=== PATIENT | male | born 1985 | race Caucasian/White ===

== ENCOUNTER 2017-10-19 13:37 | Emergency (ER) | payer BC ==
[2017-10-19 15:50] LABS: Urine Blood 2+ (NEG); Urine Glucose NEGATIVE (NEG); Urine Protein NEGATIVE (NEG)
[2017-10-19 16:47] LABS: Absolute Monocytes 0.3 K/uL (0.1-1.3); Absolute Neutrophil 7.9 K/uL (1.8-8.0); Basophils % 0.4 % (0-1.3); Eosinophils % 0.6 % (0-4.4); Hematocrit 46.5 % (39.6-49.0); Lymphocytes % 19.2 % (15.3-44.8); MCH 28.6 pg (27.0-35.0); MCV 85.9 fL (80-100); RBC Red Blood Cell Count 5.41 M/uL (4.33-5.43)
[2017-10-19] MEDS ORDERED: NA CHLORIDE 0.9% 1,000 ML ONE (16:51)
[2017-10-19 17:04] LABS: Albumin 4.6 g/dL (3.2-5.5); Bilirubin Direct 0.1 mg/dL (0-0.2); Bilirubin Total 0.5 mg/dL (0.3-1.2); Protein, Total 7.1 g/dL (6.0-8.3)
--- NOTE | 2017-10-19 17:12 | ER ---
Nurse's Notes [facility] Name: Dayo Peace Age: 32 yrs Sex: Male : 1985 Arrival Date: 10/19/2017 Time: 13:40 Bed 14 Private MD: Diagnosis: Syncope and collapse-near Presentation: 10/19 14:01 Presenting complaint: Patient states: i was at work today, started feeling light hj headiness checked my BP- 150/95, HR- 125; almost passed out; BG- 94; denies fever and chills;. Transition of care: patient was not received from another setting of care. Onset of symptoms was October 19, 2017. Care prior to arrival: None. 14:01 Method Of Arrival: Ambulatory 14:01 Acuity: RAY 3 hj Triage Assessment: 14:05 General: Appears in no apparent distress. uncomfortable, Behavior is calm, cooperative, hj appropriate for age. Pain: Denies pain. Historical: - Allergies: 14:05 No Known Allergies; hj - Home Meds: 14:05 citalopram 30 mg tab 1 tab once daily [Active]; hj - PMHx: 14:05 Anxiety; hj - PSHx: 14:05 back; hj - Immunization history:: Adult Immunizations up to date. - Social history:: Smoking status: Patient/guardian denies using tobacco, Patient/guardian denies using street drugs. - Family history:: not pertinent. Screenin:05 Abuse screen: Denies threats or abuse. Nutritional screening: No deficits noted. tw2 Tuberculosis screening: No symptoms or risk factors identified. Fall Risk None identified. Assessment: 15:03 General: Appears in no apparent distress. well groomed, Behavior is calm, cooperative, tw2 appropriate for age. Pain: Denies pain. Neuro: Level of Consciousness is awake, alert, obeys commands, Oriented to person, place, time, situation, Reports "i just feel run down like". Cardiovascular: Denies chest pain, shortness of breath, Heart tones S1 S2 Capillary refill < 3 seconds Patient's skin is warm and dry. Respiratory: Airway is patent Respiratory effort is even, unlabored, Respiratory pattern is regular, symmetrical, Breath sounds are clear bilaterally. GI: No signs and/or symptoms were reported involving the gastrointestinal system. Abdomen is flat, Bowel sounds present X 4 quads. : No signs and/or symptoms were reported regarding the genitourinary system. EENT: No signs and/or symptoms were reported regarding the EENT system. Derm: No signs and/or symptoms reported regarding the dermatologic system. Skin is intact, Skin is pale, Skin temperature is warm. Musculoskeletal: Range of motion: intact in all extremities. 16:33 Reassessment: Patient appears in no apparent distress at this time. No changes from tw2 previously documented assessment. Patient and/or family updated on plan of care and expected duration. Pain level reassessed. Patient is alert, oriented x 3, equal unlabored respirations, skin warm/dry/pink. 17:26 Reassessment: Patient appears in no apparent distress at this time. No changes from tw2 previously documented assessment. Patient and/or family updated on plan of care and expected duration. Pain level reassessed. Patient is alert, oriented x 3, equal unlabored respirations, skin warm/dry/pink. Vital Signs: 14:05 BP 127 / 76; Pulse 66; Resp 18; Temp 97.5(TE); Pulse Ox 98% on R/A; Weight 97.52 kg; hj Height 6 ft. 0 in. (182.88 cm); Pain 0/10; 15:00 BP 114 / 71 Supine; Pulse 76; tw2 15:00 BP 118 / 85 Sitting; Pulse 59; tw2 15:00 BP 118 / 73 Standing; Pulse 88; tw2 15:41 BP 122 / 79; Pulse 55; Resp 14; Pulse Ox 97% on R/A; mh5 16:33 BP 125 / 80; Pulse 56; Resp 15; Pulse Ox 98% on R/A; tw2 17:26 BP 123 / 82; Pulse 56; Resp 17; Pulse Ox 100% on R/A; tw2 14:05 Body Mass Index 29.16 (97.52 kg, 182.88 cm) hj 15:00 no c/o dizziness/lightheadedness tw2 ED Course: 13:40 Patient arrived in ED. rg4 14:04 Triage completed. hj 14:05 Arm band placed on right wrist. hj 14:51 Olga Mane RN is Primary Nurse. tw2 14:57 Keyur Mallory MD is Attending Physician. michael 15:05 Bed in low position. Call light in reach. Adult w/ patient. bus driver/monitor on. Pulse tw2 ox on. NIBP on. 16:25 EKG done, by office technology professor. reviewed by Keyur Mallory MD. at1 17:11 X-ray completed. Portable x-ray completed in exam room. Patient tolerated procedure kc2 well. 17:12 XRAY Chest (1 view) In Process Unspecified. EDMS 17:26 No provider procedures requiring assistance completed. IV discontinued, intact, tw2 bleeding controlled, No redness/swelling at site. Pressure dressing applied. Administered Medications: 16:34 Drug: NS 0.9% 1000 ml Route: IV; Rate: 1 bolus; Site: right antecubital; tw2 17:25 Follow up: IV Status: Completed infusion tw2 Point of Care Testing: Blood Glucose: 15:00 Blood Glucose: 75 mg/dL; tw2 Ranges: Outcome: 17:11 Discharge ordered by . [facility] 17:27 Patient left the ED. tw2 17:27 Discharged to home ambulatory, with significant other. tw2 17:27 Condition: stable 17:27 Discharge instructions given to patient, significant other, Instructed on discharge instructions, follow up and referral plans. Demonstrated understanding of instructions, follow-up care. Signatures: Dispatcher [employer] EDMS Keyur Mallory MD MD cha gonzales, Amanda, on line csr EKG Tat1 Richie Oliva RN RN Olga Mendez RN RN tw2 Brianna Villalba 2 Davina Felix 4 Hui Garner 5 Corrections: (The following items were deleted from the chart) 14:07 14:05 Pulse 66bpm; Resp 18bpm; Pulse Ox 98% RA; Temp 97.5F Temporal; 97.52 kg; Height 6 hj ft. 0 in.; BMI: 29.1; Pain 0/10; hj
--- NOTE | 2017-10-19 17:12 | EDPHYS ---
Physician Documentation [facility] Name: Dayo Peace Age: 32 yrs Sex: Male : 1985 Arrival Date: 10/19/2017 Time: 13:40 Bed 14 Private MD: ED Physician Keyur Mallory HPI: 10/19 16:17 This 32 yrs old Male presents to ER via Ambulatory with complaints of michael Numbness, FAINTING. 16:17 The patient's problem is reported as syncope, dizziness, near syncope, weakness. Onset: michael The symptoms/episode began/occurred just prior to arrival. Duration: This was a single incident. Context: the episode(s) was witnessed, by co-worker(s). The symptoms are alleviated by nothing. The symptoms are aggravated by nothing. Associated signs and symptoms: Pertinent positives: lightheadedness. Severity of symptoms: At their worst the symptoms were mild moderate in the emergency department the symptoms have improved moderately. The patient has not experienced similar symptoms in the past. Historical: - Allergies: 14:05 No Known Allergies; hj - Home Meds: 14:05 citalopram 30 mg tab 1 tab once daily [Active]; hj - PMHx: 14:05 Anxiety; hj - PSHx: 14:05 back; hj - Immunization history:: Adult Immunizations up to date. - Social history:: Smoking status: Patient/guardian denies using tobacco, Patient/guardian denies using street drugs. - Family history:: not pertinent. ROS: 16:17 Constitutional: Negative for fever, chills, and weight loss, Eyes: Negative for injury, michael pain, redness, and discharge, ENT: Negative for injury, pain, and discharge, Neck: Negative for injury, pain, and swelling, Cardiovascular: Negative for chest pain, palpitations, and edema, Respiratory: Negative for shortness of breath, cough, wheezing, and pleuritic chest pain, Abdomen/GI: Negative for abdominal pain, nausea, vomiting, diarrhea, and constipation, Back: Negative for injury and pain, : Negative for injury, bleeding, discharge, and swelling, MS/Extremity: Negative for injury and deformity, Skin: Negative for injury, rash, and discoloration, Psych: Negative for depression, anxiety, suicide ideation, homicidal ideation, and hallucinations, Allergy/Immunology: Negative for hives, rash, and allergies, Endocrine: Negative for neck swelling, polydipsia, polyuria, polyphagia, and marked weight changes, Hematologic/Lymphatic: Negative for swollen nodes, abnormal bleeding, and unusual bruising. 16:17 Neuro: Positive for near syncope, weakness. Exam: 16:17 Constitutional: This is a well developed, well nourished patient who is awake, alert, michael and in no acute distress. Head/Face: Normocephalic, atraumatic. Eyes: Pupils equal round and reactive to light, extra-ocular motions intact. Lids and lashes normal. Conjunctiva and sclera are non-icteric and not injected. Cornea within normal limits. Periorbital areas with no swelling, redness, or edema. ENT: Nares patent. No nasal discharge, no septal abnormalities noted. Tympanic membranes are normal and external auditory canals are clear. Oropharynx with no redness, swelling, or masses, exudates, or evidence of obstruction, uvula midline. Mucous membranes moist. Neck: Trachea midline, no thyromegaly or masses palpated, and no cervical lymphadenopathy. Supple, full range of motion without nuchal rigidity, or vertebral point tenderness. No Meningismus. Chest/axilla: Normal chest wall appearance and motion. Nontender with no deformity. No lesions are appreciated. Cardiovascular: Regular rate and rhythm with a normal S1 and S2. No gallops, murmurs, or rubs. Normal PMI, no JVD. No pulse deficits. Respiratory: Lungs have equal breath sounds bilaterally, clear to auscultation and percussion. No rales, rhonchi or wheezes noted. No increased work of breathing, no retractions or nasal flaring. Abdomen/GI: Soft, non-tender, with normal bowel sounds. No distension or tympany. No guarding or rebound. No evidence of tenderness throughout. Back: No spinal tenderness. No costovertebral tenderness. Full range of motion. Male : Normal genitalia with no discharge or lesions. Skin: Warm, dry with normal turgor. Normal color with no rashes, no lesions, and no evidence of cellulitis. MS/ Extremity: Pulses equal, no cyanosis. Neurovascular intact. Full, normal range of motion. Neuro: Awake and alert, GCS 15, oriented to person, place, time, and situation. Cranial nerves II-XII grossly intact. Motor strength 5/5 in all extremities. Sensory grossly intact. Cerebellar exam normal. Normal gait. Psych: Awake, alert, with orientation to person, place and time. Behavior, mood, and affect are within normal limits. 16:17 Neuro: Orientation: is normal, appropriate for stated age, no acute changes, Mentation: is normal, appropriate for stated age, no acute changes, Memory: is normal, appropriate for stated age, no acute changes, Cranial nerves: grossly normal, is grossly normal based on the patient's age, no acute changes, visual frederick are intact. extraocular movements are intact, Facial palsy and sensory deficits are absent. no gross hearing deficit,. Nystagmus is absent. 16:20 Musculoskeletal/extremity: DVT Exam: No signs of deep vein thrombosis. no pain, no michael swelling, no tenderness, negative Homans' sign noted on exam, no appreciated bluish discoloration, no erythema, no increased warmth. 16:21 CT study not indicated or reported. Reason for not performing CT: na [facility] Vital Signs: 14:05 BP 127 / 76; Pulse 66; Resp 18; Temp 97.5(TE); Pulse Ox 98% on R/A; Weight 97.52 kg; hj Height 6 ft. 0 in. (182.88 cm); Pain 0/10; 15:00 BP 114 / 71 Supine; Pulse 76; tw2 15:00 BP 118 / 85 Sitting; Pulse 59; tw2 15:00 BP 118 / 73 Standing; Pulse 88; tw2 15:41 BP 122 / 79; Pulse 55; Resp 14; Pulse Ox 97% on R/A; mh5 16:33 BP 125 / 80; Pulse 56; Resp 15; Pulse Ox 98% on R/A; tw2 17:26 BP 123 / 82; Pulse 56; Resp 17; Pulse Ox 100% on R/A; tw2 14:05 Body Mass Index 29.16 (97.52 kg, 182.88 cm) 15:00 no c/o dizziness/lightheadedness tw2 MDM: 14:57 Patient medically screened. [facility] 16:20 Data reviewed: vital signs, nurses notes, lab test result(s), EKG, radiologic studies, [facility] plain films. 10/19 15:43 Order name: Urine Dipstick--Ancillary (enter results); Complete Time: 16:08 10/19 16:17 Order name: Basic Metabolic Panel; Complete Time: 17: [facility] 10/19 16:17 Order name: CBC with Diff; Complete Time: 17:09 [facility] 10/19 16:17 Order name: Ckmb; Complete Time: 17: [facility] 10/19 16:17 Order name: CPK; Complete Time: 17:09 [facility] 10/19 16:17 Order name: LFT's; Complete Time: 17: [facility] 10/19 15:01 Order name: Orthostatic Blood Pressure; Complete Time: 15: [facility] 10/19 15:01 Order name: Blood Glucose Level; Complete Time: 15: [facility] 10/19 16:17 Order name: Magnesium; Complete Time: 17: [facility] 10/19 16:17 Order name: Troponin (emerg Dept Use Only); Complete Time: 17: [facility] 10/19 16:17 Order name: XRAY Chest (1 view) [facility] 10/19 16:17 Order name: EKG; Complete Time: 16:18 [facility] 10/19 17:22 Order name: Glucose, Ancillary Testing [facility] 10/19 16:17 Order name: Cardiac monitoring; Complete Time: 16:30 [facility] 10/19 16:17 Order name: EKG - Nurse/Tech; Complete Time: 16:30 [facility] 10/19 16:17 Order name: IV Saline Lock; Complete Time: 16:30 [facility] 10/19 16:17 Order name: Labs collected and sent; Complete Time: 16:30 [facility] 10/19 16:17 Order name: O2 Per Protocol; Complete Time: 16:30 [facility] 10/19 16:17 Order name: O2 Sat Monitoring; Complete Time: 16:30 [facility] 10/19 16:17 Order name: Urine Dipstick-Ancillary (obtain specimen); Complete Time: 16:30 [facility] Administered Medications: 16:34 Drug: NS 0.9% 1000 ml Route: IV; Rate: 1 bolus; Site: right antecubital; tw2 17:25 Follow up: IV Status: Completed infusion tw2 Point of Care Testing: Blood Glucose: 15:00 Blood Glucose: 75 mg/dL; tw2 Ranges: Critical Glucose Levels:Adult <50 mg/dl or >400 mg/dl <40 mg/dl or >180 mg/dl Disposition: 10/19/17 17:11 Discharged to Home. Impression: Syncope and collapse - near. - Condition is Stable. - Discharge Instructions: Near-Syncope, Weakness, Near-Syncope, Uipp-ck-Mrtr, Weakness, Htay-es-Gour. - Medication Reconciliation Form, Thank You Letter, Antibiotic Education, Prescription Opioid Use, Work release form, Family Work Release form. - Follow up: Private Physician; When: 2 - 3 days; Reason: Recheck today's complaints, Continuance of care, Re-evaluation by your physician. - Problem is new. - Symptoms have improved. Signatures: Dispatcher [employer] EDKeyur Ayala MD MD cha Joaquin, Henry, RN RN hj Olga Mane RN RN tw2
--- NOTE | 2017-10-19 17:23 | RAD REPORT ---
EXAM DESCRIPTION: RAD - Chest Single View - 10/19/2017 5:11 pm CLINICAL HISTORY: Cough, hypertension COMPARISON: None. TECHNIQUE: AP portable chest image was obtained 1707 hours . FINDINGS: Lungs are clear. Heart and vasculature are normal. No measurable pleural effusion and no p neumothorax. No gross bony abnormality seen. No acute aortic findings suspected. IMPRESSION: No acute cardiopulmonary process.
--- NOTE | 2017-10-19 21:47 | EKG ---
Test Date: 2017-09-30 Test Time: 16:21:52 Travel Agency Manager: NOLVIA MEASUREMENT RESULTS: Intervals: Rate: 61 VT: 164 QRSD: 104 QT: 412 QTc: 414 [place]: P: 43 VT: 164 QRS: 28 T: 60 INTERPRETIVE STATEMENTS: Normal sinus rhythm Incomplete right bundle branch block Borderline ECG No previous ECG available for comparison Electronically Signed On 10-19-17 21:46:31 CDT by Ferdinand Abraham
== END 2017-10-19 17:27 | disposition home or self-care (01) ==
LOC: ER 13:37
DX: R55 Syncope and collapse (principal); R53.1 Weakness; F41.9 Anxiety disorder, unspecified
CPT/HCPCS: 36415; 71045; 80048; 80076; 81003; 82550; 82553; 82962; 83735; 84484; 85025; 93005; 96360; 99284; J7030

== ENCOUNTER 2017-11-17 12:34 | Emergency (ER) | payer BC ==
[2017-11-17 13:13] LABS: Absolute Lymphocytes (CBC) 2.1 K/uL (0.7-4.9); Absolute Monocytes 0.4 K/uL (0.1-1.3); Absolute Neutrophil 5.3 K/uL (1.8-8.0); Basophils % 0.6 % (0-1.3); Eosinophils % 2.1 % (0-4.4); Hematocrit 49.1 % (39.6-49.0); MCH 28.6 pg (27.0-35.0); MPV 8.4 fL (7.6-11.3); Monocytes % 5.3 % (3.3-12.3); RBC Red Blood Cell Count 5.71 M/uL (4.33-5.43)
--- NOTE | 2017-11-17 13:19 | RAD REPORT ---
EXAM DESCRIPTION: RAD - Chest Single View - 11/17/2017 1:10 pm CLINICAL HISTORY: Chest pain. COMPARISON: 10/19/2017 FINDINGS: Portable technique limits examination quality. The lungs are grossly clear. The heart is normal in size. No displaced fractures. IMPRESSION: No acute intrathoracic process suspected.
[2017-11-17 13:26] LABS: Potassium 3.7 mEq/L (3.6-5.0)
--- NOTE | 2017-11-17 14:40 | EDPHYS ---
Physician Documentation [facility] Name: Dayo Peace Age: 32 yrs Sex: Male : 1985 Arrival Date: 11/17/2017 Time: 12:35 Bed 6 Private MD: Out, [facility] ED Physician Oswaldo Christianson HPI: 11/17 14:31 This 32 yrs old Male presents to ER via Ambulatory with complaints of Chest gs Pain, Arm Pain, Dizziness. 14:31 The patient or guardian reports chest pain that is located primarily in the anterior gs chest wall, interscapular area on left. The pain does not radiate. Associated signs and symptoms: Pertinent negatives: abdominal pain, diaphoresis. The chest pain is described as dull. Duration: The patient or guardian reports multiple episodes, that wax and wane, with no pattern. Modifying factors: The symptoms are alleviated by nothing. the symptoms are aggravated by movement. The patient has experienced similar episodes in the past, multiple times, started a month ago seen hydroelectric plant operator had stress test, started bp meds. Historical: - Allergies: 12:50 No Known Allergies; aj - Home Meds: 12:39 citalopram 30 mg tab 1 tab once daily [Active]; tw2 - PMHx: 12:39 Anxiety; tw2 - Immunization history:: Adult Immunizations up to date. - Social history:: Smoking status: Patient/guardian denies using tobacco. ROS: 14:31 All other systems are negative. gs Exam: 14:31 Head/Face: Normocephalic, atraumatic. Eyes: Pupils equal round and reactive to light, gs extra-ocular motions intact. Lids and lashes normal. Conjunctiva and sclera are non-icteric and not injected. Cornea within normal limits. Periorbital areas with no swelling, redness, or edema. ENT: Nares patent. No nasal discharge, no septal abnormalities noted. Tympanic membranes are normal and external auditory canals are clear. Oropharynx with no redness, swelling, or masses, exudates, or evidence of obstruction, uvula midline. Mucous membranes moist. Neck: Trachea midline, no thyromegaly or masses palpated, and no cervical lymphadenopathy. Supple, full range of motion without nuchal rigidity, or vertebral point tenderness. No Meningismus. Chest/axilla: Normal chest wall appearance and motion. Nontender with no deformity. No lesions are appreciated. Cardiovascular: Regular rate and rhythm with a normal S1 and S2. No gallops, murmurs, or rubs. Normal PMI, no JVD. No pulse deficits. Respiratory: Lungs have equal breath sounds bilaterally, clear to auscultation and percussion. No rales, rhonchi or wheezes noted. No increased work of breathing, no retractions or nasal flaring. Abdomen/GI: Soft, non-tender, with normal bowel sounds. No distension or tympany. No guarding or rebound. No evidence of tenderness throughout. Back: No spinal tenderness. No costovertebral tenderness. Full range of motion. Skin: Warm, dry with normal turgor. Normal color with no rashes, no lesions, and no evidence of cellulitis. MS/ Extremity: Pulses equal, no cyanosis. Neurovascular intact. Full, normal range of motion. Neuro: Awake and alert, GCS 15, oriented to person, place, time, and situation. Cranial nerves II-XII grossly intact. Motor strength 5/5 in all extremities. Sensory grossly intact. Cerebellar exam normal. Normal gait. 14:31 Constitutional: The patient appears alert, awake. 14:31 ECG was reviewed by the Attending Physician. Vital Signs: 12:37 BP 127 / 82; Pulse 66; Resp 18; Temp 98.4; Pulse Ox 96% on R/A; Weight 94.35 kg (R); tw2 Height 6 ft. 0 in. (182.88 cm); Pain 3/10; 12:37 Body Mass Index 28.21 (94.35 kg, 182.88 cm) tw2 MDM: 12:51 Patient medically screened. gs 14:31 Differential diagnosis: abnormal EKG, coronary artery disease chest wall pain. Data gs reviewed: vital signs, nurses notes. Response to treatment: the patient's symptoms have resolved after treatment, and as a result, I will discharge patient. 11/17 12:52 Order name: Basic Metabolic Panel; Complete Time: 14: 11/17 12:52 Order name: CBC with Diff; Complete Time: 14: 11/17 12:52 Order name: Troponin (emerg Dept Use Only); Complete Time: 14: 11/17 12:52 Order name: XRAY Chest (1 view); Complete Time: 14: 11/17 12:52 Order name: EKG; Complete Time: 12:53 11/17 12:52 Order name: Cardiac monitoring; Complete Time: 13: 11/17 12:52 Order name: EKG - Nurse/Tech; Complete Time: 13:34 11/17 12:52 Order name: IV Saline Lock; Complete Time: 13: 11/17 12:52 Order name: Labs collected and sent; Complete Time: : 11/17 12:52 Order name: O2 Per Protocol; Complete Time: : 11/17 12:52 Order name: O2 Sat Monitoring; Complete Time: 13: 11/17 12:52 Order name: Urine Dipstick-Ancillary (obtain specimen); Complete Time: : EC:31 Rate is 54 beats/min. Rhythm is regular with Right bundle branch block. MT interval is gs normal. QRS interval is prolonged. QT interval is normal. T waves are Normal. No ST changes noted. Clinical impression: Abnormal EKG without significant change. No change from previous ECG. Administered Medications: No medications were administered Disposition: 11/17/17 14:39 Discharged to Home. Impression: Chest pain, unspecified. - Condition is Stable. - Discharge Instructions: Nonspecific Chest Pain, Managing Your High Blood Pressure. - Medication Reconciliation Form, Thank You Letter, Antibiotic Education, Prescription Opioid Use form. - Follow up: Isaac Guadarrama MD; When: 1 - 2 days; Reason: Re-evaluation by your physician. Signatures: Dispatcher [employer] Rocio Ball RN RN aj Gallardo, Ana ag Wise, Tara, RN RN tw2 Oswaldo Christianson MD MD
--- NOTE | 2017-11-17 14:40 | ER ---
Nurse's Notes [facility] Name: Dayo Peace Age: 32 yrs Sex: Male : 1985 Arrival Date: 11/17/2017 Time: 12:35 Bed 6 Private MD: Out, [facility] Diagnosis: Chest pain, unspecified Presentation: 11/17 12:38 Presenting complaint: Patient states: having chest pain and radiates down to the left tw2 arm, belching a lot. Transition of care: patient was not received from another setting of care. Onset of symptoms was November 17, 2017. Initial Sepsis Screen: Does the patient meet any 2 criteria? No. Patient's initial sepsis screen is negative. Does the patient have a suspected source of infection? No. Patient's initial sepsis screen is negative. Care prior to arrival: None. 12:38 Method Of Arrival: Ambulatory tw2 12:38 Acuity: RAY 3 tw2 Historical: - Allergies: 12:50 No Known Allergies; aj - Home Meds: 12:39 citalopram 30 mg tab 1 tab once daily [Active]; tw2 - PMHx: 12:39 Anxiety; tw2 - Immunization history:: Adult Immunizations up to date. - Social history:: Smoking status: Patient/guardian denies using tobacco. Screenin:03 Abuse screen: Denies threats or abuse. Denies injuries from another. Nutritional hb screening: No deficits noted. Tuberculosis screening: No symptoms or risk factors identified. Fall Risk None identified. Assessment: 12:48 General: Appears in no apparent distress. comfortable, Behavior is cooperative, aj appropriate for age, anxious. Pain: Complains of pain in chest and left arm Pain radiates to left arm. Neuro: Level of Consciousness is awake, alert, obeys commands, Oriented to person, place, time, situation, Appropriate for age. Cardiovascular: Reports chest pain, lightheadedness, Capillary refill < 3 seconds in bilateral fingers Patient's skin is warm and dry. Respiratory: Airway is patent Respiratory effort is even, unlabored, Respiratory pattern is regular, symmetrical. GI: Reports gaseousness. Derm: Skin is intact, is healthy with good turgor, Skin is pink, warm \T\ dry. normal. Vital Signs: 12:37 BP 127 / 82; Pulse 66; Resp 18; Temp 98.4; Pulse Ox 96% on R/A; Weight 94.35 kg (R); tw2 Height 6 ft. 0 in. (182.88 cm); Pain 3/10; 12:37 Body Mass Index 28.21 (94.35 kg, 182.88 cm) tw2 ED Course: 12:35 Patient arrived in ED. mr 12:35 Out, [facility] is Private Physician. mr 12:38 Arm band placed on. tw2 12:39 Triage completed. tw2 12:42 Oswaldo Christianson MD is Attending Physician. gs 13:00 Inserted saline lock: 20 gauge in right antecubital area, using aseptic technique. hb Blood collected. Patient maintains SpO2 saturation greater than 95% on room air. 13:03 Patient has correct armband on for positive identification. Placed in gown. Bed in low hb position. configuration manager on. Pulse ox on. NIBP on. 13:06 X-ray completed. Portable x-ray completed in exam room. Patient tolerated procedure jb2 well. 13:08 XRAY Chest (1 view) In Process Unspecified. EDMS 13:31 Rocio Tran, RN is Primary Nurse. 14:02 EKG done, by gastrointestinal technician. reviewed by Oswaldo Christianson MD. 14:37 Isaac Guadarrama MD is Referral Physician. Administered Medications: No medications were administered Outcome: 14:39 Discharge ordered by . 15:06 Patient left the ED. ag Signatures: Dispatcher [employer] EDMS Rocio Tran RN RN aj Rivera, Maria Jodi Webbere jb2 Taylor Erickson, ceramic engineer EKG [facility] Tatiana Ramirez Sherie Campbell RN RN hb Wise, Tara, RN RN tw2 Oswaldo Christianson MD MD
--- NOTE | 2017-11-18 06:59 | EKG ---
Test Date: 2017-11-17 Test Time: 13:48:35 Answerer: SHAUN MEASUREMENT RESULTS: Intervals: Rate: 54 NE: 162 QRSD: 106 QT: 430 QTc: 407 [place]: P: 40 NE: 162 QRS: 93 T: 31 INTERPRETIVE STATEMENTS: Sinus bradycardia Rightward axis Incomplete right bundle branch block Borderline ECG Compared to ECG 10/19/2017 16:21:52 Right-axis deviation now present Sinus rhythm no longer present Electronically Signed On 11-18-17 06:59:11 CDT by Ferdinand Abraham
== END 2017-11-17 15:06 | disposition home or self-care (01) ==
LOC: ER 12:34
DX: R07.9 Chest pain, unspecified (principal); F41.9 Anxiety disorder, unspecified
CPT/HCPCS: 36415; 71045; 80048; 84484; 85025; 93005; 99285

== ENCOUNTER 2023-02-27 09:17 | Emergency (ER) | payer OTHER ==
--- OUTSIDE RECORDS SUMMARY | 2023-02-27 09:20 | XMS REPORT | Continuity of Care Document ---
:1985 Author Organization [facility] t Address [address] [place] [address] [address] [place] [address] Care Team Providers Name Role Phone KAITLIN JOSEPH Primary Care Physician Unavailable RABIA Attending Clinician Unavailable DR KAITLIN JOSEPH Attending Clinician Unavailable [phone] Attending Clinician Unavailable LOLLY SEPULVEDA Attending Clinician Unavailable LOLLY SEPULVEDA Attending Clinician Unavailable 1, [facility] Bed Attending Clinician Unavailable Lolly Sepulveda MD Attending Clinician Doctor Unassigned, Mckenzie Attending Clinician Unavailable Only, Adc Test Attending Clinician Unavailable Danna Becker MD Attending Clinician DANNA BECKER Attending Clinician Unavailable RABIA Admitting Clinician Unavailable DR KAITLIN JOSEPH Admitting Clinician Unavailable Payers Payer Name Policy Type Policy Number Effective Date Expiration Date Price guillen TNA [facility] [id number] [facility] [id number] 2020 ADMINISTRATION 00:00:00 Problems Condition Condition Condition Status Onset Resolution Last Treating Co mments Source Name Details Category Date Date Treatment Clinician Date Orchalgia Orchalgia Diagnosis Active [facility] History of History of Diagnosis Active Common kidney kidney Spirit stones stones - [facility] Allergies, Adverse Reactions, Alerts Allergy Allergy Status Severity Reaction(s) Onset Inactive Treating Comm ents Source Name Type Date Date Clinician No Known MA Active UNKNOWN [facility] [place] [facility] NO KNOWN Drug Active Univers ALLERGIE Class ity of S [facility] Family History Family Member Diagnosis Comments Start Date Stop Date Source Natural father Yarsani [facility] Natural mother Yarsani [facility] Social History Social Habit Start Date Stop Date Quantity Comments Source Exposure to Not sure [facility] SARS-CoV-2 (event) [facility] Gender identity [facility] Sexual [facility] History of tobacco Snuff User [facility] Alcohol intake 2017-09-15 2017-09-15 Current Yarsani 00:00:00 00:00:00 non-drinker of Hospital alcohol (finding) History of Social 2017-09-15 2017-09-[address] function 00:00:00 00:00:00 Hospital Tobacco use and 2017-09-15 2017-09-15 User of Yarsani exposure 00:00:00 00:00:00 smokeless Hospital tobacco Sex Assigned At [birth year] Yarsani 00:00:00 00:00:00 Hospital Smoking Status Start Date Stop Date Source Unknown if ever smoked [facility] Never smoked tobacco [facility] ospital Medications Ordered Filled Start Stop Current Ordering Indication Dosage Frequency Signature Comments Components Source Medication Medication Date Date Medication? Clinician (SIG) Name Name Omeprazole Omeprazole Yes Lisa 1 capsule Common [place] 30 minutes Spiri t before - [facility] Citalopram Citalopram Yes Lisa 1 tablet Common Hydrobromid Hydrobromid Jodie Spirit e e - [facility] Procedures Procedure Date / Time Performed Performing Clinician [facility] e SLEEP STUDY DATA 2020-08-14 06:01:00 Doctor Unassigned, No Unive [facility] REPORT Name [facility] [place] Plan of Care Planned Activity Planned Date Details Comments Source Future Scheduled 2023-02-27 COVID-19 VACCINE [facility] Test 09:19:43 (#1) [code = COVID-19 VACCINE (#1)] Future Scheduled 2023-02-27 INFLUENZA VACCINE [facility] Test 09:19:43 [code = INFLUENZA VACCINE] Future Scheduled 2021-05-29 COVID-19 VACCINE [facility] 23:01:51 (1) [code = COVID-19 VACCINE (1)] Future Scheduled 2021-05-29 INFLUENZA VACCINE [facility] Test 23:01:51 [code = INFLUENZA VACCINE] Future Scheduled COVID-19 VACCINE [facility] Test (1) [code = COVID-19 VACCINE (1)] Future Scheduled INFLUENZA VACCINE [facility] Test [code = INFLUENZA VACCINE] Future Scheduled COVID-19 VACCINE Method[facility] Test (1) [code = COVID-19 VACCINE (1)] Future Scheduled INFLUENZA VACCINE [facility] Test [code = INFLUENZA VACCINE] Encounters Start End Encounter Admission Attending Care Care Encounter Source Date/Time Date/Time Type Type Clinicians Facility Department ID 2021-09-[address] [facility] [place] [id number] 13:39:41 [id number] [place] [facility] 2021-08-21 [facility]patient [facility] [id number] Common 11:31:26 [id number] [facility] 2021-12-26 2021-12-26 Outpatient SISSON_C [facility] [id number] [place] 12:01:00 12:01:00 [id number] [facility] 2021-09-28 2021-09-28 Outpatient KAITLIN PENA [facility] [id number] 13:43:00 14:00:00 [id number] [facility] 2020-08-14 2020-08-14 Outpatient R LOLLY SEPULVEDA [facility] [id number] Univers 19:30:00 19:30:00 LOLLY SEPULVEDA [facility] 2020-08-14 2020-08-14 Picture Framer 1, Tel[facility] Sleep Lab Bed [facility] [id number]. [id number] [facility] 13:24:27 15:54:27 Visit Lolly Sepulveda [place] [id number] itmarilee [facility] [id number] [facility] [id number] [address] 2020-08-14 2020-08-14 Orders Doctor TIM [id number] Univers 00:00:00 00:00:00 Only Unassigned, MELVIN [id number] ity of [place] [facility] [id number] Anmol [id number] [facility] [address] 2020-08-10 2020-08-10 Laboratory Only, Adc Test [facility] [id number] Univers 14:14:54 14:29:54 Only Danna Becker [id number] ity of [place] [id number] [facility] [id number] [facility] [address] 2020-08-10 2020-08-10 Outpatient Li BECKER [facility] [id number] Univers 13:30:00 13:30:00 DANNA doherty [facility] 2020-02-08 2020-02-08 Outpatient Zoe Churchill [id number] Common 09:00:00 09:00:00 t Specialty/U Sp jim Specialty rology - [facility] Results This patient has no known results.
[2023-02-27 09:55] LABS: Absolute Lymphocytes (CBC) 2.8 K/uL (0.7-4.9); Hematocrit 47.5 % (39.6-49.0); Lymphocytes % 32.9 % (15.3-44.8); MCV 86.5 fL (80-100); MPV 8.2 fL (7.6-11.3)
[2023-02-27 10:16] LABS: Magnesium 2.1 mg/dL (1.6-2.4); Potassium 3.6 mEq/L (3.5-5.1); Troponin High Sensitivity 18.5 pg/mL (<58.9)
--- NOTE | 2023-02-27 10:16 | RAD REPORT ---
EXAM DESCRIPTION: RAD - Chest Single View - 02/27/2023 10:09 am CLINICAL HISTORY: CHEST PAIN Chest pain. COMPARISON: Chest Single View dated 11/17/2017; Chest Single View dated 10/19/2017 FINDINGS: Portable technique limits examination quality. The lungs are grossly clear. The heart is normal in size. No displaced fractures. IMPRESSION: No acute intrathoracic process suspected.
--- NOTE | 2023-02-27 11:11 | EDPHYS ---
Physician Documentation [facility] Name: Dayo Peace Age: 37 yrs Sex: Male : 1985 Arrival Date: 02/27/2023 Time: 09:17 Bed 15 Private MD: ED Physician Munir Daly HPI: 02/27 17:42 This 37 yrs old Male presents to ER via Ambulatory with complaints of High Blood kb Pressure. 17:42 The patient has elevated blood pressure and discovered this at home, with a home kb device. Onset: The symptoms/episode began/occurred 1 week(s) ago. Associated signs and symptoms: Pertinent positives: headache. Severity of symptoms: At its worst the blood pressure was 150 mm Hg, in the emergency department the blood pressure is unchanged. The patient has not experienced similar symptoms in the past. The patient has not recently seen a physician. [facility] last Thursday and start losartan 25mg instead because he had been on metoprolol for too long. States his blood pressure has been high since the change and he has had headaches and felt weird since. . Historical: - Allergies: 09:30 No Known Allergies; kc6 - PMHx: 09:30 Anxiety; Hypertensive disorder; kc6 - PSHx: 09:30 None; kc6 - Immunization history:: Client reports having NOT received the Covid vaccine. Flu vaccine is not up to date. - Social history:: Smoking status: Patient denies any tobacco usage or history of. ROS: 17:44 Constitutional: Negative for fever, chills, and weight loss. kb 17:44 Neuro: Positive for headache. 17:44 Psych: Positive for anxiety. 17:44 All other systems are negative. Exam: 10:15 Constitutional: This is a well developed, well nourished patient who is awake, alert, kb and in no acute distress. Head/Face: Normocephalic, atraumatic. Eyes: Pupils equal round and reactive to light, extra-ocular motions intact. Lids and lashes normal. Conjunctiva and sclera are non-icteric and not injected. Cornea within normal limits. Periorbital areas with no swelling, redness, or edema. ENT: Moist Mucous membranes Cardiovascular: Regular rate and rhythm with a normal S1 and S2. No gallops, murmurs, or rubs. No pulse deficits. Respiratory: Respirations even and unlabored. No increased work of breathing. Talking in full sentences Abdomen/GI: Soft, non-tender. No distention Skin: Warm, dry with normal turgor. Normal color. MS/ Extremity: Pulses equal, no cyanosis. Neurovascular intact. Full, normal range of motion. Neuro: Awake and alert, GCS 15, oriented to person, place, time, and situation. Moves all extremities. Normal gait. 10:15 ECG was reviewed by the Attending Physician. Vital Signs: 09:29 BP 154 / 99; Pulse 73; Resp 19 S; Temp 97.4(O); Pulse Ox 99% on R/A; Weight 99.79 kg kc6 (R); Height 6 ft. 0 in. (R); Pain 5/10; 10:26 BP 116 / 78; Pulse 56; Resp 18 S; Pulse Ox 94% on R/A; kc6 11:06 BP 97 / 59; Pulse 53; Resp 18 S; Pulse Ox 99% on R/A; kc6 09:29 Body Mass Index 29.84 (99.79 kg, 182.88 cm) kc6 09:29 Pain Scale: Adult kc6 MDM: 09:21 Patient medically screened. kb 17:45 Differential diagnosis: hypertensive crisis, hypertension, adverse medication reaction. kb Data reviewed: vital signs, nurses notes. Counseling: I had a detailed discussion with the patient and/or guardian regarding: the historical points, exam findings, and any diagnostic results supporting the discharge/admit diagnosis, lab results, radiology results, the need for outpatient follow up, a family practitioner, to return to the emergency department if symptoms worsen or persist or if there are any questions or concerns that arise at home. ED course: Feeling better prior to discharge, symptoms resolved. 02/27 09:35 Order name: Basic Metabolic Panel; Complete Time: 10:19 kb 02/27 09:35 Order name: CBC with Diff; Complete Time: 10:02 kb 02/27 09:35 Order name: Magnesium; Complete Time: 10:19 kb 02/27 09:35 Order name: NT PRO-BNP; Complete Time: 10:19 kb 02/27 09:35 Order name: Troponin HS; Complete Time: 10:19 kb 02/27 09:35 Order name: XRAY Chest (1 view); Complete Time: 10:26 kb 02/27 09:35 Order name: EKG; Complete Time: 09:36 kb 02/27 09:35 Order name: Cardiac monitoring; Complete Time: 09:39 kb 02/27 09:35 Order name: EKG - Nurse/Tech; Complete Time: 09:39 kb 02/27 09:35 Order name: IV Saline Lock; Complete Time: 09:46 kb 02/27 09:35 Order name: Labs collected and sent; Complete Time: :46 kb 02/27 09:35 Order name: O2 Per Protocol; Complete Time: :39 kb 02/27 09:35 Order name: O2 Sat Monitoring; Complete Time: :39 kb EC:15 Rate is 62 beats/min. Rhythm is regular. QRS Carbon is Normal. CA interval is normal at kb 178 msec. QRS interval is normal at 108 msec. QT interval is normal at 406 msec. Administered Medications: No medications were administered Disposition: 18:26 Co-signature as Attending Physician, Munir Daly MD I reviewed the patient's care rt provided by the Advanced Practice Provider and agree with the diagnosis and treatment plan. Disposition Summary: 02/27/23 11:10 Discharge Ordered Location: Home kb Condition: Stable kb Diagnosis - Essential (primary) hypertension kb Followup: kb - With: Emergency Department - When: As needed - Reason: Worsening of condition Followup: kb - With: Private Physician - When: 2 - 3 days - Reason: Recheck today's complaints, Continuance of care, Re-evaluation by your physician Discharge Instructions: - Discharge Summary Sheet kb - Hypertension, Adult, [id number] kb - How to Take Your Blood Pressure, [id number] kb - Managing Your Hypertension kb Forms: - Medication Reconciliation Form kb - Thank You Letter kb - Antibiotic Education kb - Prescription Opioid Use kb - Patient Portal Instructions kb - Work release form kc6 Signatures: Dispatcher [employer] Juana Black FNP-C FNP-Shari Brizuela RN RN kc6 Munir Daly MD MD rt
--- NOTE | 2023-02-27 11:11 | ER ---
Nurse's Notes [facility] Name: Dayo Peace Age: 37 yrs Sex: Male : 1985 Arrival Date: 02/27/2023 Time: 09:17 Bed 15 Private MD: Diagnosis: Essential (primary) hypertension Presentation: 02/27 09:29 Chief complaint: Patient states: recent change in BP meds from 50mg of Metoprolo to kc6 25mg of Losartan. pt has been having dizziness, lightheaded, burping, and head presure. reports htn at home. Coronavirus screen: At this time, the client does not indicate any symptoms associated with coronavirus-19. Ebola Screen: No symptoms or risks identified at this time. Initial Sepsis Screen: Does the patient meet any 2 criteria? No. Patient's initial sepsis screen is negative. Does the patient have a suspected source of infection? No. Patient's initial sepsis screen is negative. Risk Assessment: Do you want to hurt yourself or someone else? Patient reports no desire to harm self or others. Onset of symptoms was February 27, 2023. 09:29 Method Of Arrival: Ambulatory [facility] 09:29 Acuity: RAY 3 kc6 Triage Assessment: 09:30 General: Appears in no apparent distress. uncomfortable, Behavior is cooperative, kc6 appropriate for age, anxious. Pain: Complains of pain in chest, headache Pain does not radiate. Pain currently is 5 out of 10 on a pain scale. Quality of pain is described as dull, heavy, pressure, Pain began 2-3 days ago. Is continuous. EENT: No signs and/or symptoms were reported regarding the EENT system. Neuro: Thomson Agitation-Sedation Scale (RASS): 0 - Alert and Calm Level of Consciousness is awake, alert, obeys commands, Oriented to person, place, time, situation, Appropriate for age Reports dizziness. Cardiovascular: Capillary refill < 3 seconds. Respiratory: Airway is patent Trachea midline Respiratory effort is even, unlabored, Respiratory pattern is regular, symmetrical, Denies shortness of breath. GI: No signs and/or symptoms were reported involving the gastrointestinal system. : No signs and/or symptoms were reported regarding the genitourinary system. Derm: No signs and/or symptoms reported regarding the dermatologic system. Skin is intact, is healthy with good turgor, Skin is pink, warm \T\ dry. Musculoskeletal: No signs and/or symptoms reported regarding the musculoskeletal system. Circulation, motion, and sensation intact. Capillary refill < 3 seconds, Range of motion: intact in all extremities. Historical: - Allergies: 09:30 No Known Allergies; kc6 - PMHx: 09:30 Anxiety; Hypertensive disorder; kc6 - PSHx: 09:30 None; kc6 - Immunization history:: Client reports having NOT received the Covid vaccine. Flu vaccine is not up to date. - Social history:: Smoking status: Patient denies any tobacco usage or history of. Screenin:32 [facility] ED Fall Risk Assessment (Adult) History of falling in the last 3 months, kc6 including since admission No falls in past 3 months (0 pts) Confusion or Disorientation No (0 pts) Intoxicated or Sedated No (0 pts) Impaired Gait No (0 pts) Mobility Assist Device Used No (0 pt) Altered Elimination No (0 pt) Score/Fall Risk Level 0 - 2 = Low Risk. Abuse screen: Denies threats or abuse. Denies injuries from another. Nutritional screening: No deficits noted. Tuberculosis screening: No symptoms or risk factors identified. Assessment: 09:33 Reassessment: please see triage assessment. 6 10:25 Reassessment: Patient appears in no apparent distress at this time. No changes from [facility] previously documented assessment. Patient and/or family updated on plan of care and expected duration. Pain level reassessed. Patient is alert, oriented x 3, equal unlabored respirations, skin warm/dry/pink. 11:06 Reassessment: Patient appears in no apparent distress at this time. No changes from [facility] previously documented assessment. Patient and/or family updated on plan of care and expected duration. Pain level reassessed. Patient is alert, oriented x 3, equal unlabored respirations, skin warm/dry/pink. Vital Signs: 09:29 BP 154 / 99; Pulse 73; Resp 19 S; Temp 97.4(O); Pulse Ox 99% on R/A; Weight 99.79 kg kc6 (R); Height 6 ft. 0 in. (R); Pain 5/10; 10:26 BP 116 / 78; Pulse 56; Resp 18 S; Pulse Ox 94% on R/A; kc6 11:06 BP 97 / 59; Pulse 53; Resp 18 S; Pulse Ox 99% on R/A; kc6 09:29 Body Mass Index 29.84 (99.79 kg, 182.88 cm) kc6 09:29 Pain Scale: Adult kc6 ED Course: 09:18 Patient arrived in ED. im 09:19 Juana Nelson [facility]-C [facility] kb 09:19 Munir Daly MD is Attending Physician. kb 09:23 Shari Mcguire, RN is Primary Nurse. kc6 09:30 Triage completed. kc6 09:33 Patient has correct armband on for positive identification. Placed in gown. Bed in low kc6 position. Call light in reach. Side rails up X 1. Adult w/ patient. Client placed on continuous cardiac and pulse oximetry monitoring. NIBP monitoring applied. monitoring and evaluation advisor on. 09:33 Arm band placed on. kc6 10:10 XRAY Chest (1 view) In Process Unspecified. EDMS 11:24 No provider procedures requiring assistance completed. IV discontinued, intact, kc6 bleeding controlled, No redness/swelling at site. Pressure dressing applied. Administered Medications: No medications were administered Medication: 11:24 VIS not applicable for this client. kc6 Outcome: 11:10 Discharge ordered by . kb 11:24 Discharged to home ambulatory, with significant other. kc6 11:24 Condition: improved 11:24 Discharge instructions given to patient, Instructed on discharge instructions, follow up and referral plans. Demonstrated understanding of instructions, follow-up care. 11:24 Patient left the ED. kc6 Signatures: Dispatcher [employer] EDMS Juana Nelson FNP-C FNP-Shari Brizuela, RN RN kc6 Kandace Joseph im
[2023-02-27 11:30] VITALS: TEMP 97.4
[2023-02-27 11:33] VITALS: BP 97/59; O2SAT 99
--- NOTE | 2023-03-02 13:13 | EKG ---
Test Date: 2023-02-27 Test Time: 09:37:46 Poultry Processor: MANJULA MEASUREMENT RESULTS: Intervals: Rate: 62 MS: 178 QRSD: 108 QT: 400 QTc: 406 [place]: P: 31 MS: 178 QRS: 73 T: 28 INTERPRETIVE STATEMENTS: Normal sinus rhythm Incomplete right bundle branch block Borderline ECG Compared to ECG 11/17/2017 13:48:35 Sinus bradycardia no longer present Right-axis deviation no longer present Electronically Signed On 03-02-23 13:09:05 CDT by Silvestre Fuchs
== END 2023-02-27 11:24 | disposition home or self-care (01) ==
LOC: ER 09:17
DX: I10 Essential (primary) hypertension (principal)
CPT/HCPCS: 36415; 71045; 80048; 83735; 83880; 84484; 85025; 93005; 99284

== ENCOUNTER 2024-12-06 10:07 | Emergency (ER) | payer OTHER ==
--- NOTE | 2024-12-06 10:55 | RAD REPORT ---
Procedure: Chest Single View HISTORY: Syncope and numbness COMPARISON: 2022 FINDINGS: The lungs appear clear of acute infiltrate. No significant pleural effusion noted. The heart is normal size. IMPRESSION: No acute abnormality is displayed.
[2024-12-06 10:58] LABS: Absolute Eosinophils 0.1 K/uL (0-0.5); Absolute Lymphocytes (CBC) 1.3 K/uL (0.7-4.9); Absolute Monocytes 0.3 K/uL (0.1-1.3); Absolute Neutrophil 2.6 K/uL (1.8-8.0); Basophils % 0.6 % (0-1.3); Eosinophils % 2.7 % (0-4.4); Hematocrit 49.6 % (39.6-49.0); Hemoglobin 16.9 g/dL (13.6-17.9); Lymphocytes % 29.5 % (15.3-44.8); MCH 29.5 pg (27.0-35.0); MCV 86.7 fL (80-100); MPV 8.2 fL (7.6-11.3); Monocytes % 7.4 % (3.3-12.3); Neutrophils % 59.8 % (41.7-73.7); Platelets 181 thou/uL (152-406); RBC Red Blood Cell Count 5.72 M/uL (4.33-5.43); Red Cell Distribution Width 13.7 % (12.1-15.2)
[2024-12-06 11:02] LABS: PT Prothrombin Time 11.8 SECONDS (10-13.0); Protime INR 1.04
--- NOTE | 2024-12-06 11:07 | RAD REPORT ---
EXAM: CT brain without contrast HISTORY: Syncope COMPARISON: None TECHNIQUE: Multiple contiguous axial images were obtained and a CT of the brain without contrast.. Sagittal and coronal reconstruction performed. Automated exposure control, adjustment of the mA and/or kV according to patient size, and/or iterative reconstruction. Unless otherwise specified, incidental f indings do not require dedicated imaging follow-up FINDINGS: An intracranial bleed is not seen Ventricles are normal caliber No extra-axial fluid collection noted No significant hypodensity within the brain No fluid within the visualized sinuses or mastoids noted. IMPRESSION: No acute intracranial abnormality noted. If the patient continues to have symptoms to suggest an acute intracranial abnormality then MRI of th e brain would be recommended.
[2024-12-06 11:24] LABS: Albumin 3.6 g/dL (3.4-5.0); Albumin/Globulin Ratio 1.2 (1.1-1.8); Anion Gap 8.8 mEq/L (5.0-15.0); Bilirubin Direct 0.3 mg/dL (0-0.2); Bilirubin Indirect, Calculated 0.7 mg/dL (0.2-0.8); Globulin 2.9 g/dL (2.3-3.5); Magnesium 1.9 mg/dL (1.6-2.4); Potassium 3.8 mEq/L (3.5-5.1); Protein, Total 6.5 g/dL (6.4-8.2); Troponin High Sensitivity 14.4 pg/mL (<58.9)
--- NOTE | 2024-12-06 11:40 | ER ---
Nurse's Notes [facility] Name: Dayo Peace Age: 39 yrs Sex: Male : 1985 Arrival Date: 12/06/2024 Time: 10:07 Bed 6 Private MD: Diagnosis: Anxiety attack Presentation: 12/06 10:21 Chief complaint: EMS states: "toned out for being at work and bilateral arms/legs mb9 started tingling. Pt denies CP/SOB/headache. 18g left AC, gave 1 Nitroglycerin, 2 Aspirin, and 1 liter of LR.". Coronavirus screen: Vaccine status: Patient reports being unvaccinated. Ebola Screen: No symptoms or risks identified at this time. Initial Sepsis Screen: Does the patient meet any 2 criteria? No. Patient's initial sepsis screen is negative. Does the patient have a suspected source of infection? No. Patient's initial sepsis screen is negative. Risk Assessment: Do you want to hurt yourself or someone else? Patient reports no desire to harm self or others. Onset of symptoms was December 06, 2024. 10:21 Acuity: RAY 3 mb9 10:21 Method Of Arrival: EMS: [facility] mb9 Triage Assessment: 10:24 General: Appears uncomfortable, Behavior is calm, cooperative. Pain: Denies pain. EENT: mb9 No signs and/or symptoms were reported regarding the EENT system. Neuro: Thomson Agitation-Sedation Scale (RASS): 0 - Alert and Calm Level of Consciousness is awake, alert, obeys commands, Oriented to person, place, time, situation, Appropriate for age. Cardiovascular: Heart tones S1 S2 present Patient's skin is warm and dry. Respiratory: Airway is patent Respiratory effort is even, unlabored, Respiratory pattern is regular, symmetrical, Breath sounds are clear bilaterally. GI: Abdomen is round non-distended, Bowel sounds present X 4 quads. Abd is soft and non tender X 4 quads. : No signs and/or symptoms were reported regarding the genitourinary system. Derm: Skin is pink, warm \\T\\ dry. Musculoskeletal: Range of motion: intact in all extremities. Historical: - Allergies: 10:23 No Known Allergies; mb9 - Home Meds: 10:23 losartan oral [Active]; Metoprolol Tartrate Oral [Active]; Metoprolol Tartrate Oral mb9 [Active]; - PMHx: 10:23 Anxiety; Hypertensive disorder; mb9 - PSHx: 10:23 None; mb9 - Immunization history:: Adult Immunizations up to date. - Infectious Disease History:: Denies. - Social history:: Smoking status: Patient denies any tobacco usage or history of. Screenin:26 [facility] ED Fall Risk Assessment (Adult) History of falling in the last 3 months, mb9 including since admission No falls in past 3 months (0 pts) Confusion or Disorientation No (0 pts) Intoxicated or Sedated No (0 pts) Impaired Gait No (0 pts) Mobility Assist Device Used No (0 pt) Altered Elimination No (0 pt) Score/Fall Risk Level 0 - 2 = Low Risk Oriented to surroundings, Maintained a safe environment, Educated pt \\T\\ family on fall prevention, incl call for assistance when getting out of bed. Abuse screen: Denies threats or abuse. Nutritional screening: No deficits noted. Tuberculosis screening: No symptoms or risk factors identified. Assessment: 10:26 Reassessment: see triage assessment. mb9 10:39 Reassessment: Pt to xray. ld1 11:28 Reassessment: No changes from previously documented assessment. Patient and/or family mb9 updated on plan of care and expected duration. Pain level reassessed. Patient is alert, oriented x 3, equal unlabored respirations, skin warm/dry/pink. 11:47 Reassessment: Patient appears in no apparent distress at this time. No changes from mb9 previously documented assessment. Patient and/or family updated on plan of care and expected duration. Pain level reassessed. Patient is alert, oriented x 3, equal unlabored respirations, skin warm/dry/pink. Vital Signs: 10:21 BP 148 / 81; Pulse 67; Resp 18; Temp 98; Pulse Ox 100% ; Weight 104.33 kg; Height 6 ft. mb9 0 in. ; Pain 0/10; 10:37 BP 136 / 87 Supine; Pulse 61; Resp 17; Pulse Ox 98% on R/A; bc6 10:37 BP 136 / 93 Sitting; Pulse 70; Resp 17; Pulse Ox 97% on R/A; bc6 10:37 BP 158 / 97 Standing; Pulse 67; Resp 18; Pulse Ox 97% on R/A; bc6 11:47 BP 142 / 86; Pulse 77; Resp 18; Pulse Ox 100% on R/A; mb9 10:21 Body Mass Index 31.19 (104.33 kg, 182.88 cm) mb9 10:21 Pain Scale: Adult mb9 ED Course: 10:19 Patient arrived in ED. sp3 10:19 Abhi Garcia MD is Attending Physician. sp3 10:20 Shannon Shepherd, RN is Primary Nurse. mb9 10:21 Arm band placed on. mb9 10:23 Triage completed. mb9 10:26 Bed in low position. Call light in reach. Side rails up X 1. Provided Education on: mb9 press call light if needing anything. Client placed on continuous cardiac and pulse oximetry monitoring. NIBP monitoring applied. laboratory apparatus glass blower on. Door closed. Noise minimized. Warm blanket given. Pillow given. 10:26 Maintain EMS IV. Dressing intact. Good blood return noted. Site clean \\T\\ dry. Gauge \\T\\ mb 9 site: 18 g left AC. Flushed with 10 mL NS. 10:42 CT Head Brain wo Cont In Process Unspecified. EDMS 10:50 XRAY Chest (1 view) In Process Unspecified. EDMS 10:56 No provider procedures requiring assistance completed. mb9 11:47 IV discontinued, intact, bleeding controlled, No redness/swelling at site. Pressure mb9 dressing applied. Administered Medications: No medications were administered Medication: 10:26 VIS not applicable for this client. mb9 Outcome: 11:39 Discharge ordered by . sp3 11:48 Discharged to home ambulatory, with family, mb9 11:48 Condition: stable 11:48 Discharge instructions given to patient, family, Instructed on discharge instructions, follow up and referral plans. Demonstrated understanding of instructions, follow-up care, 11:48 Patient left the ED. mb9 Signatures: Dispatcher [employer] EDMS Amber Schmitt RN RN ld1 Abhi Garcia MD MD sp3 Shannon Shepherd, RN RN mb9 [facility]
--- NOTE | 2024-12-06 11:41 | EDPHYS ---
Physician Documentation [facility] Name: Dayo Peace Age: 39 yrs Sex: Male : 1985 Arrival Date: 12/06/2024 Time: 10:07 Bed 6 Private MD: ED Physician Abhi Garcia HPI: 12/06 10:22 This 39 yrs old Male presents to ER via Unassigned with complaints of bilateral arm/leg sp3 tingling. 10:22 39-year-old male with history of hypertension, anxiety, currently microdosing Cialis at sp3 2.5 mg, presents to the ED with chief complaint of tingling to all extremities, general malaise and near syncope. EMS found patient in an incomplete right bundle and gave nitroglycerin due to hypotension and concerns for possible ACS. Patient now has a mild headache. Patient denies any chest pain, back pain, shortness of breath, abdominal pain, vomiting, diarrhea, full syncope, exogenous substance use, trauma, known sick contacts, travel history, prolonged immobilization, fever or other signs or symptoms on ROS at this time.. Historical: - Allergies: 10:23 No Known Allergies; mb9 - Home Meds: 10:23 losartan oral [Active]; Metoprolol Tartrate Oral [Active]; Metoprolol Tartrate Oral mb9 [Active]; - PMHx: 10:23 Anxiety; Hypertensive disorder; mb9 - PSHx: 10:23 None; mb9 - Immunization history:: Adult Immunizations up to date. - Infectious Disease History:: Denies. - Social history:: Smoking status: Patient denies any tobacco usage or history of. ROS: 10:23 Eyes: Negative for injury, pain, redness, and discharge, Neck: Negative for injury, sp3 pain, and swelling, Respiratory: Negative for shortness of breath, cough, wheezing, and pleuritic chest pain, Abdomen/GI: Negative for abdominal pain, nausea, vomiting, diarrhea, and constipation, Back: Negative for injury and pain, MS/Extremity: Negative for injury and deformity, Skin: Negative for injury, rash, and discoloration, Psych: Negative for depression, anxiety, suicide ideation, homicidal ideation, and hallucinations, Allergy/Immunology: Negative for hives, rash, and allergies, Endocrine: Negative for neck swelling, polydipsia, polyuria, polyphagia, and marked weight changes, Hematologic/Lymphatic: Negative for swollen nodes, abnormal bleeding, and unusual bruising, 10:23 All other systems are negative, Exam: 10:24 Constitutional: This is a well developed, well nourished patient who is awake, alert, sp3 and in no acute distress. Head/Face: Normocephalic, atraumatic. Eyes: Pupils equal round and reactive to light, extra-ocular motions intact. Lids and lashes normal. Conjunctiva and sclera are non-icteric and not injected. Cornea within normal limits. Periorbital areas with no swelling, redness, or edema. ENT: Nares patent. No nasal discharge, no septal abnormalities noted. External auditory canals are clear. Oropharynx with no redness, swelling, or masses, exudates, or evidence of obstruction, uvula midline. Mucous membranes moist. Neck: Trachea midline, no thyromegaly or masses palpated, and no cervical lymphadenopathy. Supple, full range of motion without nuchal rigidity, or vertebral point tenderness. No Meningismus. Chest/axilla: Normal chest wall appearance and motion. Nontender with no deformity. No lesions are appreciated. Cardiovascular: Regular rate and rhythm with a normal S1 and S2. No gallops, murmurs, or rubs. Normal PMI, no JVD. No pulse deficits. Respiratory: Lungs have equal breath sounds bilaterally, clear to auscultation and percussion. No rales, rhonchi or wheezes noted. No increased work of breathing, no retractions or nasal flaring. Abdomen/GI: Soft, non-tender, with normal bowel sounds. No distension or tympany. No guarding or rebound. No evidence of tenderness throughout. Back: No spinal tenderness. No costovertebral tenderness. Full range of motion. Skin: Warm, dry with normal turgor. Normal color with no rashes, no lesions, and no evidence of cellulitis. MS/ Extremity: Pulses equal, no cyanosis. Neurovascular intact. Full, normal range of motion. Neuro: Awake and alert, GCS 15, oriented to person, place, time, and situation. Cranial nerves II-XII grossly intact. Motor strength 5/5 in all extremities. Sensory grossly intact. Cerebellar exam normal. Normal gait. Psych: Awake, alert, with orientation to person, place and time. Behavior, mood, and affect are within normal limits. 11:04 ECG was reviewed by the Attending Physician. EKG demonstrates normal sinus rhythm at 60 sp3 bpm with normal intervals, incomplete right bundle branch block and nonspecific ST/T changes without evidence of acute ischemia. Vital Signs: 10:21 BP 148 / 81; Pulse 67; Resp 18; Temp 98; Pulse Ox 100% ; Weight 104.33 kg; Height 6 ft. mb9 0 in. ; Pain 0/10; 10:37 BP 136 / 87 Supine; Pulse 61; Resp 17; Pulse Ox 98% on R/A; bc6 10:37 BP 136 / 93 Sitting; Pulse 70; Resp 17; Pulse Ox 97% on R/A; bc6 10:37 BP 158 / 97 Standing; Pulse 67; Resp 18; Pulse Ox 97% on R/A; bc6 11:47 BP 142 / 86; Pulse 77; Resp 18; Pulse Ox 100% on R/A; mb9 10:21 Body Mass Index 31.19 (104.33 kg, 182.88 cm) mb9 10:21 Pain Scale: Adult mb9 MDM: 10:20 Medical Screening Exam initiated sp3 10:24 Data reviewed: vital signs, nurses notes, EMS record, lab test result(s), EKG, sp3 radiologic studies. ED course: 39-year-old male with PMH above now with near syncope, malaise and bilateral upper and lower extremity tingling. Patient states it does not "feel like an anxiety attack" but states that it could possibly be. Differential diagnosis includes anxiety, electrolyte abnormality, viral illness, acute coronary syndrome, other GI pathology, other neurological pathology, among others. Workup include CT scan of the head, chest x-ray, EKG and general labs including troponin. Disposition pending workup and patient course.. 11:39 ED course: Full workup negative for any significant findings. Patient is resting sp3 comfortably and all symptoms are resolved. This is likely due to anxiety and have advised him to follow back up with his PCP.. 12/06 10:20 Order name: Basic Metabolic Panel; Complete Time: 11:27 sp3 12/06 10:20 Order name: CBC with Diff; Complete Time: 11:08 sp3 12/06 10:20 Order name: LFT's; Complete Time: 11: sp3 12/06 10:20 Order name: Magnesium; Complete Time: 11:27 3 12/06 10:20 Order name: NT PRO-BNP; Complete Time: 11:27 [facility] 12/06 10:20 Order name: PT-INR; Complete Time: 11:08 [facility] 12/06 10:20 Order name: Troponin HS; Complete Time: 11:27 3 12/06 10:20 Order name: XRAY Chest (1 view); Complete Time: 11:08 [facility] 12/06 10:20 Order name: CT Head Brain wo Cont; Complete Time: 11: [facility] 12/06 10:20 Order name: Cardiac monitoring; Complete Time: 10:35 [facility] 12/06 10:20 Order name: EKG - Nurse/Tech; Complete Time: 10:35 [facility] 12/06 10:20 Order name: IV Saline Lock; Complete Time: 10:35 [facility] 12/06 10:20 Order name: Labs collected and sent; Complete Time: 10:35 [facility] 12/06 10:20 Order name: O2 Per Protocol; Complete Time: 10:28 [facility] 12/06 10:20 Order name: O2 Sat Monitoring; Complete Time: 10: [facility] 12/06 10:20 Order name: Orthostatics; Complete Time: 10:39 sp3 Administered Medications: No medications were administered Disposition Summary: 12/06/24 11:39 Discharge Ordered Notes: Location: Home sp3 Condition: Stable sp3 Diagnosis - Anxiety attack sp3 Followup: sp3 - With: Private Physician - When: Upon discharge from the Emergency Department - Reason: Continuance of care Discharge Instructions: - Discharge Summary Sheet sp3 - Near-Syncope sp3 - Managing Anxiety, Adult sp3 Forms: - Medication Reconciliation Form sp3 - Antibiotic Education sp3 - Prescription Opioid Use sp3 - Patient Portal Instructions sp3 - Leadership Thank You Letter sp3 Signatures: Dispatcher [employer] EDAbhi Green MD MD sp3 Shannon Shepherd RN RN mb9 Corrections: (The following items were deleted from the chart) 10:21 10:21 BASIC METABOLIC PANEL+C.LAB.BRZ ordered. EDMS EDMS 10:21 10:21 CBC+H.LAB.BRZ ordered. EDMS EDMS 10:21 10:21 HEPATIC FUNCTION+C.LAB.BRZ ordered. EDMS EDMS 10:21 10:21 MAGNESIUM+C.LAB.BRZ ordered. EDMS EDMS 10:21 10:21 PROBNP+C.LAB.BRZ ordered. EDMS EDMS 10:21 10:21 PROTIME (+INR)+COAG.LAB.BRZ ordered. EDMS EDMS 10:21 10:21 Troponin High Sensitivity+C.LAB.BRZ ordered. EDMS EDMS 10:21 10:21 Chest Single View+RAD.RAD.BRZ ordered. EDMS EDMS 10:21 10:21 Head Brain Wo Cont+CT.RAD.BRZ ordered. EDMS EDMS
[2024-12-06 11:53] VITALS: TEMP 98
[2024-12-06 11:56] VITALS: BP 142/86; O2SAT 100
--- NOTE | 2024-12-07 12:21 | EKG ---
Test Date: 2024-12-06 Test Time: 10:29:22 Real Estate Professor: CHATO MEASUREMENT RESULTS: Intervals: Rate: 59 AR: 180 QRSD: 114 QT: 410 QTc: 405 [place]: P: 34 AR: 180 QRS: 62 T: 38 INTERPRETIVE STATEMENTS: Sinus bradycardia Incomplete right bundle branch block Nonspecific T wave abnormality Abnormal ECG Compared to ECG 02/27/2023 09:37:46 T-wave abnormality now present Sinus rhythm no longer present Electronically Signed On 12-07-24 12:20:02 CDT by Tal Singh
== END 2024-12-06 11:48 | disposition home or self-care (01) ==
LOC: ER 10:07
DX: F41.0 Panic disorder [episodic paroxysmal anxiety] (principal); I10 Essential (primary) hypertension
CPT/HCPCS: 36415; 70450; 71045; 80048; 80076; 83735; 83880; 84484; 85025; 85610; 93005; 99284